=== PATIENT | male | born 1975 | race Caucasian/White ===

== ENCOUNTER 2020-07-19 11:25 | Emergency (ER) | payer SELFPAY ==
[~2020-07-19] VITALS: Ht 182.9 cm; Wt 99.1 kg
[2020-07-19] MEDS ORDERED: metroNIDAZOLE-Flagyl 500mg/NS 100 ML IV STA (12:35)
[2020-07-19] MEDS ORDERED: normal saline 1000ML IV soln IVB ONE (12:35)
[2020-07-19 13:07] LABS: BASOPHILS % (AUTO) 0.4 % (0-1); EOSINOPHILS # (AUTO) 0.1 X10'3 (0-0.9); EOSINOPHILS % (AUTO) 1.4 % (0-6); HEMATOCRIT 43.1 % (42.0-52.0); HEMOGLOBIN 14.3 g/dl (14.0-17.9); LYMPHOCYTES # (AUTO) 0.6 X10'3 (1.1-4.8); LYMPHOCYTES % (AUTO) 7.8 % (21-51); MEAN CORPUSCULAR HEMOGLOBIN 27.5 PG (27.0-31.0); MEAN CORPUSCULAR HGB CONC 33.2 g/dL (33.0-36.5); MEAN CORPUSCULAR VOLUME 82.8 FL (78-98); MEAN PLATELET VOLUME 7.2 FL (7.4-10.4); MONOCYTES # (AUTO) 0.7 X10'3 (0-0.9); MONOCYTES % (AUTO) 7.9 % (2-12); NEUTROPHILS # (AUTO) 6.8 X10'3 (1.8-7.7); NEUTROPHILS % (AUTO) 82.5 % (42-75); PLATELET COUNT 311 X10'3 (140-440); RED CELL DISTRIBUTION WIDTH 14.3 % (11.5-14.5); WHITE BLOOD COUNT 8.2 X10'3 (4.5-11.0)
[2020-07-19 13:17] LABS: OCCULT BLOOD STOOL NEGATIVE (Neg)
[2020-07-19 13:20] LABS: ALANINE AMINOTRANSFERASE 32 U/L (12-78); ALKALINE PHOSPHATASE 80 IU/L (46-116); AMYLASE 43 U/L (25-115); ANION GAP 8 (8-16); ASPARTATE AMINO TRANSFERASE 19 U/L (10-37); BILIRUBIN,TOTAL 0.6 MG/DL (0.1-1.0); BLOOD UREA NITROGEN 11 MG/DL (7-18); CALCIUM 9.2 MG/DL (8.5-10.1); CHLORIDE 103 MMOL/L (99-107); CREATININE 1.22 MG/DL (0.60-1.10); GLUCOSE 95 MG/DL (70-104); LIPASE < 50 U/L (73-393); POTASSIUM 4.1 MMOL/L (3.5-5.1); SODIUM 140 MMOL/L (135-145); TOTAL CARBON DIOXIDE 29.5 MMOL/L (24-32); eGFR 65 ML/MIN
[2020-07-19] MEDS ORDERED: ciprofloxacin lact 400MG/200ML 200 ML IV SCH ×2 (14:52→20:00)
[2020-07-19 16:12] VITALS: BP 120/83
== END 2020-07-19 16:24 | disposition home or self-care (01) ==
LOC: ER 11:25
DX: R19.7 Diarrhea, unspecified (principal); R10.31 Right lower quadrant pain; R10.32 Left lower quadrant pain; I88.0 Nonspecific mesenteric lymphadenitis; Z20.828 Contact with and (suspected) exposure to other viral communicable diseases
CPT/HCPCS: 36415; 74176; 80053; 82150; 82272; 83690; 85025; 87635; 96365; 96366; 96368; 99285; J0744; J3490; J7030

== ENCOUNTER 2023-03-07 08:24 | Emergency (ER) | payer OTHER ==
[2023-03-07] MEDS ORDERED: methylPREDNISolone sod succ 125mg/2ml vial IV ONE (10:35)
[2023-03-07] MEDS ORDERED: normal saline 1000ML IV soln IVB ONE (10:35)
[2023-03-07] MEDS ORDERED: ketorolac trometh. 30mg/ml inj. IV ONE (10:35)
[2023-03-07 10:58] LABS: BASOPHILS % (AUTO) 0.3 % (0-1); EOSINOPHILS # (AUTO) 0.1 X10'3 (0-0.9); EOSINOPHILS % (AUTO) 2.2 % (0-6); HEMATOCRIT 41.3 % (42.0-52.0); HEMOGLOBIN 13.8 g/dl (14.0-17.9); LYMPHOCYTES # (AUTO) 0.8 X10'3 (1.1-4.8); LYMPHOCYTES % (AUTO) 14.6 % (21-51); MEAN CORPUSCULAR HEMOGLOBIN 28.7 PG (27.0-31.0); MEAN CORPUSCULAR HGB CONC 33.3 g/dL (33.0-36.5); MEAN CORPUSCULAR VOLUME 86.1 FL (78-98); MEAN PLATELET VOLUME 7.2 FL (7.4-10.4); MONOCYTES # (AUTO) 1.1 X10'3 (0-0.9); MONOCYTES % (AUTO) 18.8 % (2-12); NEUTROPHILS # (AUTO) 3.6 X10'3 (1.8-7.7); NEUTROPHILS % (AUTO) 64.1 % (42-75); PLATELET COUNT 287 X10'3 (140-440); RED CELL DISTRIBUTION WIDTH 14.2 % (11.5-14.5); WHITE BLOOD COUNT 5.6 X10'3 (4.5-11.0)
[2023-03-07 11:10] LABS: ALANINE AMINOTRANSFERASE 25 U/L (12-78); ALBUMIN 3.7 G/DL (3.4-5.0); ALBUMIN/GLOBULIN RATIO 1.1 (1.1-1.5); ALKALINE PHOSPHATASE 55 IU/L (46-116); ANION GAP 8 (8-16); ASPARTATE AMINO TRANSFERASE 14 U/L (10-37); BILIRUBIN,TOTAL 0.6 MG/DL (0.1-1.0); BLOOD UREA NITROGEN 8 MG/DL (7-18); BUN/CREATININE RATIO 6.6 (10.0-20.0); CALCIUM 9.2 MG/DL (8.5-10.1); CHLORIDE 102 MMOL/L (99-107); CREATININE 1.22 MG/DL (0.60-1.10); GLUCOSE 85 MG/DL (70-104); SODIUM 139 MMOL/L (135-145); TOTAL CARBON DIOXIDE 28.7 MMOL/L (24-32); TOTAL PROTEIN 7.2 G/DL (6.4-8.2); eGFR 64 ML/MIN
[2023-03-07 11:25] LABS: PLATELET ESTIMATE NORMAL; TOTAL CELLS COUNTED 100
[2023-03-07] MEDS ORDERED: PRED10TA23 PO (12:59)
[2023-03-07] MEDS ORDERED: AMOX-117 PO (12:59)
[2023-03-07] MEDS ORDERED: OXYC-145 PO (12:59)
[2023-03-07] MEDS ORDERED: METR-159 PO (12:59)
[2023-03-07] MEDS ORDERED: oxyCODONE/APAP 5-325mg tablet PO ONE (13:00)
[2023-03-07 13:37] VITALS: BP 123/74
== END 2023-03-07 13:39 | disposition home or self-care (01) ==
LOC: ER 08:24
DX: K51.90 Ulcerative colitis, unspecified, without complications (principal)
CPT/HCPCS: 74176; 80053; 85007; 85025; 96361; 96374; 96375; 99285; J1885; J2930; J7030

== ENCOUNTER 2023-08-16 22:21 | Emergency (ER) | payer OTHER ==
[~2023-08-16] VITALS: Ht 182.9 cm; Wt 98.7 kg
[~2023-08-16 22:21] MED LIST: OXYC-145 PO
[2023-08-16 22:24] VITALS: BP 141/96; PULSE 99; RESP 16; TEMP 98.3; O2SAT 100
[2023-08-16] MEDS ORDERED: CYCL-1 PO (23:24)
[2023-08-16] MEDS ORDERED: IBUP-1984 PO (23:24)
== END 2023-08-16 23:42 | disposition home or self-care (01) ==
LOC: ER 22:21
DX: S29.012A Strain of muscle and tendon of back wall of thorax, initial encounter (principal); X58.XXXA Exposure to other specified factors, initial encounter; Y93.89 Activity, other specified; Y92.89 Other specified places as the place of occurrence of the external cause; Y99.8 Other external cause status
CPT/HCPCS: 93005; 99283